=== PATIENT | female | born 1945 | race Caucasian/White ===

== ENCOUNTER 2022-02-24 12:46 | Emergency (ER) | payer OTHER ==
[2022-02-24 13:01] VITALS: TEMP 97.4; BMI 25.0
[2022-02-24] MEDS ORDERED: SODIUM CHLORIDE 0.9% 500 ML INFUS.BAG IV ONE (13:39)
[2022-02-24 14:38] LABS: BASO % 0.7 % (0-2.0); EOS % 0.6 % (0-4.5); HEMATOCRIT 40.2 % (32.4-45.2); HEMOGLOBIN 13.6 GM/dL (10.7-15.3); LYMPH % 28.1 % (8-40); MCH 28.2 pg (25.7-33.7); MCHC 33.8 g/dl (32.0-36.0); MEAN CELL VOLUME 83.6 fl (80-96); MEAN PLT VOLUME 8.3 fl (7.5-11.1); MONO % 6.7 % (3.8-10.2); NEUT % 63.9 % (42.8-82.8); PLATELET COUNT 277 10^3/uL (134-434); RBC 4.81 M/mm3 (3.60-5.2); RDW 13.5 % (11.6-15.6); URINE APPEARANCE CLEAR; URINE BILIRUBIN NEGATIVE (NEGATIVE); URINE COLOR YELLOW; URINE GLUCOSE (UA) 2+ (NEGATIVE); URINE KETONE NEGATIVE (NEGATIVE); URINE LEUK ESTERASE NEGATIVE (NEGATIVE); URINE NITRITE NEGATIVE (NEGATIVE); URINE PROTEIN NEGATIVE (NEGATIVE); URINE UROBILINOGEN 0.2 mg/dL (0.2-1.0); WHITE BLOOD COUNT 7.4 K/mm3 (4.0-10.0)
[2022-02-24 14:39] LABS: VENOUS BASE EXCESS -1.5 mmol/L (-2-2); VENOUS O2 SATURATION 66.5 % (70-80); VENOUS PH 7.37 (7.310-7.410)
[2022-02-24 15:08] LABS: ALBUMIN 3.8 g/dl (3.4-5.0); CALCIUM 9.5 mg/dL (8.5-10.1)
[2022-02-24 15:12] LABS: CREATININE 0.7 mg/dL (0.55-1.3)
[2022-02-24 15:13] LABS: TOT PROT 7.5 g/dl (6.4-8.2)
[2022-02-24 16:34] VITALS: BP 140/80; PULSE 76
== END 2022-02-24 16:33 | disposition home or self-care (01) ==
LOC: JER 12:46
DX: R73.9 Hyperglycemia, unspecified (principal)
CPT/HCPCS: 36415; 71046-TC-FY; 80053; 81003; 82010; 82803; 82962; 85025; 87086; 99284-25

== ENCOUNTER 2024-08-12 04:36 | Day surgery (SDC) | payer OTHER ==
[2024-08-07 12:54] VITALS: BMI 26.2
[~2024-08-12 04:36] MED LIST: ACETAMINOPHEN 325 MG TABLET (FP) PO PRN
[2024-08-12] MEDS ORDERED: PHENYLEPHRINE 2.5% OPTHALMIC DROP 2ML BOTTLE ONE (07:11)
[2024-08-12] MEDS ORDERED: CYCLOPENTOLATE HCL 1% OPHTH SOLN 2 ML BOTTLE ONE (07:11)
[2024-08-12] MEDS ORDERED: TROPICAMIDE 1% OPHTH SOLN 15 ML BOTTLE ONE (07:11)
[2024-08-12] MEDS ORDERED: KETOROLAC TROMETHAMINE 0.5% EYE DROP 1 DROP DROPS ONE (07:11)
[2024-08-12] MEDS ORDERED: OFLOXACIN 0.3% OPHTHALMIC SOLUTION 5 ML BOTTLE ONE (07:11)
[2024-08-12] MEDS: CYCLOPENTOLATE HCL 1% OPHTH SOLN 2 ML BOTTLE OP SCH (07:20)
[2024-08-12] MEDS: TROPICAMIDE 1% OPHTH SOLN 15 ML BOTTLE OP SCH (07:21)
[2024-08-12] MEDS: PHENYLEPHRINE 2.5% OPHTH SOLN 15 ML BOTTLE OP SCH (07:21)
[2024-08-12] MEDS: KETOROLAC TROMETHAMINE 0.5% EYE DROP 1 DROP DROPS OP SCH (07:21)
[2024-08-12] MEDS: OFLOXACIN 0.3% OPHTHALMIC SOLUTION 5 ML BOTTLE OP SCH (07:22)
[2024-08-12] MEDS ORDERED: LIDOCAINE HCL/PF 1% SDV 5ML VIAL ONE (07:28)
[2024-08-12] MEDS ORDERED: BUPIVACAINE HCL/PF 0.75% 10 ML VIAL ONE (07:28)
[2024-08-12] MEDS ORDERED: LIDOCAINE HCL 2% (20ML MULTI-DOSE VIAL) ONE (07:28)
[2024-08-12] MEDS ORDERED: POVIDONE-IODINE 5% OPHTHALMIC PREP 30 ML SOLUTION ONE (07:29)
[2024-08-12] MEDS ORDERED: BSS (NA/CA/MG/K) BALANCED SALT SOLUTION OPHTH SOLN 15 ML BOTTLE ONE (07:29)
[2024-08-12] MEDS ORDERED: MIDAZOLAM HCL 2 MG/2 ML SINGLE DOSE VIAL ONE (08:28)
[2024-08-12] MEDS ORDERED: PROPOFOL 20 ML ONE (08:31)
[2024-08-12] MEDS: BUPIVACAINE HCL/PF 0.75% 10 ML VIAL NR ONE ×2 (09:06)
[2024-08-12] MEDS: LIDOCAINE HCL/PF 2% SDV 5ML VIAL INF ONE ×2 (09:06)
[2024-08-12] MEDS: POVIDONE-IODINE 5% OPHTHALMIC PREP 30 ML SOLUTION OD ONE ×2 (09:09)
[2024-08-12] MEDS: LIDOCAINE HCL 1% PRESERVATIVE FREE - 30ML VIAL IJ ONE ×2 (09:15)
[2024-08-12] MEDS: BSS (NA/CA/MG/K) BALANCED SALT SOLUTION OPHTH SOLN 15 ML BOTTLE IO ONE ×2 (09:16)
[2024-08-12] MEDS: CHONDROITIN SU A/HYALUR SOD 1 KIT IO ONE ×2 (09:16)
[2024-08-12] MEDS: EPINEPHrine 1:1,000 1,000 MCG/ML ML SQ ONE ×2 (09:23)
[2024-08-12 10:44] VITALS: PULSE 66
[2024-08-12 11:40] VITALS: BP 106/69; RESP 20; TEMP 97.1
== END 2024-08-12 11:41 | disposition home or self-care (01) ==
LOC: JASU-SURG 04:36
PROVIDERS: ATTEND Ophthalmology
PROC: 08DJ3ZZ Extraction of Right Lens, Percutaneous Approach (ICD-10-PCS; principal; 2024-08-12 09:00)
DX: H26.9 Unspecified cataract (principal)
CPT/HCPCS: 66984; V2632; 82962

== ENCOUNTER 2024-08-26 04:55 | Day surgery (SDC) | payer OTHER ==
[2024-08-21 15:27] VITALS: BMI 26.2
[2024-08-26] MEDS ORDERED: LIDOCAINE HCL/PF 2% SDV 5ML VIAL ONE ×2 (07:39→11:44)
[2024-08-26] MEDS ORDERED: TETRACAINE 0.5% OPHTH SOLN 2 ML BOTTLE ONE (07:39)
[2024-08-26] MEDS ORDERED: POVIDONE-IODINE 5% OPHTHALMIC PREP 30 ML SOLUTION ONE (07:39)
[2024-08-26] MEDS ORDERED: LIDOCAINE HCL/PF 1% SDV 5ML VIAL ONE (07:39)
[2024-08-26] MEDS ORDERED: BUPIVACAINE HCL/PF 0.75% 10 ML VIAL ONE (07:39)
[2024-08-26] MEDS ORDERED: TRYPAN BLUE 0.5 ML DISP.SYRIN ONE (07:40)
[2024-08-26] MEDS ORDERED: EPINEPHrine/PF 1 MG/1 ML (1:1,000) AMPULE ONE (07:51)
[2024-08-26] MEDS ORDERED: TROPICAMIDE 1% OPHTH SOLN 15 ML BOTTLE ONE (09:57)
[2024-08-26] MEDS ORDERED: CYCLOPENTOLATE HCL 1% OPHTH SOLN 2 ML BOTTLE ONE (09:57)
[2024-08-26] MEDS ORDERED: PHENYLEPHRINE 2.5% OPTHALMIC DROP 2ML BOTTLE ONE (09:57)
[2024-08-26] MEDS ORDERED: KETOROLAC TROMETHAMINE 0.5% EYE DROP 1 DROP DROPS ONE (09:57)
[2024-08-26] MEDS ORDERED: OFLOXACIN 0.3% OPHTHALMIC SOLUTION 5 ML BOTTLE ONE (09:57)
[2024-08-26] MEDS: KETOROLAC TROMETHAMINE 0.5% EYE DROP 1 DROP DROPS OP SCH (10:08)
[2024-08-26] MEDS: TROPICAMIDE 1% OPHTH SOLN 15 ML BOTTLE OP SCH (10:08)
[2024-08-26] MEDS: OFLOXACIN 0.3% OPHTHALMIC SOLUTION 5 ML BOTTLE OP SCH (10:09)
[2024-08-26] MEDS: PHENYLEPHRINE 2.5% OPHTH SOLN 15 ML BOTTLE OP SCH (10:09)
[2024-08-26] MEDS: CYCLOPENTOLATE HCL 1% OPHTH SOLN 2 ML BOTTLE OP SCH (10:09)
[2024-08-26] MEDS ORDERED: PROPOFOL 20 ML ONE (11:31)
[2024-08-26] MEDS ORDERED: DEXMEDETOMIDINE HCL 200 MCG/2 ML IVPB ONE (11:32)
[2024-08-26] MEDS: LIDOCAINE HCL/PF 2% SDV 5ML VIAL INF ONE ×2 (11:52)
[2024-08-26] MEDS: BUPIVACAINE HCL/PF 0.75% 10 ML VIAL RB ONE ×2 (11:52)
[2024-08-26] MEDS: POVIDONE-IODINE 5% OPHTHALMIC PREP 30 ML SOLUTION OS ONE ×2 (11:54)
[2024-08-26] MEDS: BSS (NA/CA/MG/K) BALANCED SALT SOLUTION OPHTH SOLN 15 ML BOTTLE OS ONE ×2 (11:58)
[2024-08-26] MEDS: LIDOCAINE HCL 1% PRESERVATIVE FREE - 30ML VIAL IO ONE ×2 (11:59)
[2024-08-26] MEDS: CHONDROITIN SU A/HYALUR SOD 1 KIT IO ONE ×2 (12:01)
[2024-08-26] MEDS: EPINEPHrine/PF 1 MG/1 ML (1:1,000) AMPULE IO ONE ×2 (12:05)
[2024-08-26 13:27] VITALS: BP 135/77; PULSE 75; RESP 18; TEMP 97.7
== END 2024-08-26 13:05 | disposition home or self-care (01) ==
LOC: JASU-SURG 04:55
PROVIDERS: ATTEND Ophthalmology
PROC: 08RK3JZ Replacement of Left Lens with Synthetic Substitute, Percutaneous Approach (ICD-10-PCS; principal; 2024-08-26 12:00)
DX: H26.9 Unspecified cataract (principal)
CPT/HCPCS: 82962; V2632